=== PATIENT | male | born 1995 | race Hispanic/Latino ===

== ENCOUNTER 2018-06-21 14:27 | Inpatient (IN) | payer OTHER ==
[~2018-06-21] VITALS: Ht 182.9 cm; Wt 126.2 kg
[2018-06-21] MEDS ORDERED: SODIUM CHLORIDE 0.9% 1000ML 1,000 ML IV STA (14:41)
[2018-06-21] MEDS ORDERED: MORPHINE SULFATE INJ 4 MG/ML INJ IV ONE (15:00)
[2018-06-21] MEDS ORDERED: ONDANSETRON HCL INJ 2 MG/ML VIAL IV ONE (15:00)
[2018-06-21 15:03] LABS: BASOPHILS % 0.2 % (0.0-1.0); EOSINOPHILS # (AUTO) 0.1 (0.0-0.4); EOSINOPHILS % 0.6 % (0.0-6.0); HEMATOCRIT 45.7 % (38.2-49.6); HEMOGLOBIN 15.3 g/dL (14.0-18.0); LYMPHOCYTES # (AUTO) 2.5 (1.0-3.2); LYMPHOCYTES % 19.5 % (18.0-39.1); MEAN CORPUSCULAR HEMOGLOBIN 28.7 pg (28-32); MEAN CORPUSCULAR HGB CONC 33.5 g/dL (31-35); MEAN CORPUSCULAR VOLUME 85.6 fL (81-99); NEUTROPHILS % 71.4 % (38.7-80.0); PLATELET COUNT 290 x10e3/uL (140-360); RED BLOOD COUNT 5.34 x10e6/uL (4.3-5.7); RED CELL DISTRIBUTION WIDTH 13.2 % (11.7-14.4)
[2018-06-21 15:15] LABS: ALANINE AMINOTRANSFERASE 56 IU/L (0-55); ALBUMIN 4.3 g/dL (3.5-5.0); ALBUMIN/GLOBULIN RATIO 1.2 (0.8-2.0); ALKALINE PHOSPHATASE 95 IU/L (40-150); ANION GAP 14.9 mmol/L (8-16); CARBON DIOXIDE 28 mmol/L (22-29); CHLORIDE 101 mmol/L (98-107); EST GLOMERULAR FILTRATION RATE > 60 ML/MIN (60-); GLUCOSE 103 mg/dL (74-118); POTASSIUM 3.9 mmol/L (3.5-5.1); SODIUM 140 mmol/L (136-145)
[2018-06-21 15:31] LABS: BUN/CREATININE RATIO 11 (6-25)
[2018-06-21 15:48] LABS: BLOOD UREA NITROGEN 10 mg/dL (7-26)
[2018-06-21 16:13] LABS: BILIRUBIN,URINE NEGATIVE (NEGATIVE); CLARITY,URINE CLEAR (CLEAR); COLOR,URINE YELLOW (YELLOW); KETONES,URINE NEGATIVE (NEGATIVE); LEUKOCYTE ESTERASE ,URINE NEGATIVE (NEGATIVE); NITRITE,URINE NEGATIVE (NEGATIVE); PROTEIN,URINE DIPSTICK NEGATIVE (NEGATIVE); URINE UROBILINOGEN 0.2 mg/dL (0.2 - 1)
--- NOTE | 2018-06-21 16:18 | Diagnostic Imaging Report ---
EXAM: CT Abdomen and Pelvis WITH contrast INDICATION: Right lower quadrant pain COMPARISON: None. TECHNIQUE: Abdomen and Pelvis was scanned utilizing a multidetector helical scanner after administration of IV contrast. Coronal and sagittal reformations were obtained. IV CONTRAST: 100 mL Isovue-370 COMPLICATIONS: None RADIATION DOSE: Total DLP:1078 mGy*cm Estimated effective dose: (DLP x 0.015 x size factor) mSv CTDIvol has been reviewed. It is below the limits set by the Radiation Protocol Committee (RPC). Appropriate CT dose reduction techniques were utilized. FINDINGS: Abdomen: Lung Bases: No acute findings. Solid Organs: Unremarkable. Upper GI Tract: No small bowel obstructive changes. Vascularity: Unremarkable. Lymph Nodes: None Other: None. Pelvis: Bladder: Unremarkable. Other: None. Colon: Appendix is dilated and inflamed with appendicolith present. No evidence of perforation or abscess. Bones: No acute changes. IMPRESSION: 1. Moderate appendicitis with no evidence of abscess/rupture. Signed by: Dr. Juan Rodriguez MD on 06/21/2018 4:15 PM
[2018-06-21 16:26] LABS: AMORPHOUS SEDIMENT,URINE MODERATE (FEW); BACTERIA,URINE FEW /HPF; EPITHELIAL CELLS,URINE RARE /LPF
[2018-06-21] MEDS ORDERED: MORPHINE SULFATE INJ 4 MG/ML INJ IV PRN ×2 (16:45→17:00)
[2018-06-21] MEDS ORDERED: MORPHINE SULFATE 2 MG/ML SYR IV PRN (17:00)
--- OUTSIDE RECORDS SUMMARY | 2018-06-21 17:03 | XMS REPORT ---
Author [facility] Address Unknown Phone Unavailable Care Team Providers Care Heel Emery Buffer Name Role Phone Damian FRANZ Unavailable Unavailable Problems This patient has no known problems. Allergies, Adverse Reactions, Alerts This patient has no known allergies or adverse reactions. Medications This patient has no known medications. Results Test Description Test Time Test Comments Text Results Atomic Results Result Comments CT ABDOMEN/PELVIS W 2018-06-21 16:13:00 [place] [address] Patient Name: JOJO MONGE MR #: [id number] : 1995 Age/Sex: 22/M Req #: [id number] Adm Physician: Ordered by: LILLIE GONZALEZ [employer] Report #: [id number] Location: ER Room/Bed: Procedure: [id number] CT/CT ABDOMEN/PELVIS W Exam Date: 06/21/18 Exam Time: 1530 REPORT STATUS: Signed EXAM: CT Abdomen and Pelvis WITH contrast INDIC ATION: Right lower quadrant pain COMPARISON: None. TECHNIQUE: Abdomen and Pelvis was scanned utilizing a multidetector helical scanner after administration of IV contrast. Coronal and sagittal reformations were obtained. IV CONTRAST: 100 mL Isovue-370 COMPLICATIONS: None RADIATION DOSE: Total DLP:1078 mGy*cm Estimated effective dose: (DLP x 0.015 x size factor) mSv CTDIvol has been reviewed. It is below the limits set by the Radiation Protocol Committee (RPC). Appropriate CT dose reduction techniques were utilized. FINDINGS: Abdomen: Lung Bases: No acute findings. Solid Organs: Unremarkable. Upper GI Tract: No small bowel obstructive changes. Vascularity: Unremarkable. Lymph Nodes: None Other: None. Pelvis: Bladder: Unremarkable. Other: None. Colon: Appendix is dilated and inflamed with appendicolith present. No evidence of perforation or abscess. Bones: No acute changes. IMPRESSION: 1. Moderate appendicitis with no evidence of abscess/rupture. Signed by: Dr. Juan Rodriguez MD on 06/21/2018 4:15 PM Dictated By: JUAN RODRIGUEZ MD 1619 Transcribed By: RAQUEL on 06/21/18 1618 COPY TO: LILLIE GONZALEZ NP
[2018-06-21] MEDS: PIPER-TAZ 3.375 GM 50 ML IV SCH ×2 (17:04→23:09)
[2018-06-21] MEDS: SODIUM CHLORIDE 0.9% 1000ML 1,000 ML IV SCH (17:05)
[2018-06-21] MEDS ORDERED: ROCURONIUM BROMIDE 10 MG/ML 5ML VIAL ONE (18:49)
[2018-06-21] MEDS ORDERED: GLYCOPYRROLATE INJ 1MG/ 5 ML SYR ONE (18:49)
[2018-06-21] MEDS ORDERED: NEOSTIGMINE 5 MG/5ML SYR ONE (18:49)
[2018-06-21] MEDS ORDERED: PROPOFOL IV EMULSION 10 MG/ML 20 ML VIAL ONE (18:49)
[2018-06-21] MEDS ORDERED: SUCCINYLCHOLINE 200 MG/10 ML SYR ONE (18:49)
[2018-06-21] MEDS ORDERED: SEVOFLURANE INHAL SOLN 250 ML PEN BTL ONE (18:49)
[2018-06-21] MEDS ORDERED: ONDANSETRON HCL INJ 2 MG/ML VIAL ONE (18:49)
[2018-06-21] MEDS ORDERED: DEXAMETHASONE SOD PHOS INJ 4 MG/ML VIAL ONE (18:49)
[2018-06-21] MEDS ORDERED: LIDOCAINE HCL 2% LOCAL INJ 5 ML SDV VIAL INJ ONE (18:49)
[2018-06-21] MEDS ORDERED: ACETAMINOPHEN 1000 MG/100 ML IV ONE (18:49)
[2018-06-21] MEDS: ONDANSETRON HCL INJ 2 MG/ML VIAL IV PRN ×2 (18:50→23:00)
[2018-06-21] MEDS ORDERED: HYDROMORPHONE 1MG/1ML INJ IV PRN (20:00)
[2018-06-21 21:15] VITALS: BP 147/87
[2018-06-21 21:34] VITALS: BP 147/87
[2018-06-21] MEDS ORDERED: IOPAMIDOL 370 MG/ML 200 ML INFUS..BTL INJ ONE (22:14)
[2018-06-21] MEDS ORDERED: SODIUM CHLORIDE 0.9% 50ML 50 ML ONE (22:14)
[2018-06-21] MEDS: HYDROMORPHONE 2MG/ML 2 MG/ML ML IV PRN (23:00)
[2018-06-22] VITALS (7 sets, daily range): BP systolic 121–182; BP diastolic 56–107
[2018-06-22] MEDS: SODIUM CHLORIDE 0.9% 1000ML 1,000 ML IV SCH ×3 (01:46→16:29)
[2018-06-22] MEDS: ONDANSETRON HCL INJ 2 MG/ML VIAL IV PRN ×4 (03:30→22:05)
[2018-06-22] MEDS: HYDROMORPHONE 2MG/ML 2 MG/ML ML IV PRN ×4 (03:30→22:05)
[2018-06-22] MEDS: PIPER-TAZ 3.375 GM 50 ML IV SCH ×4 (05:57→23:30)
[2018-06-22] MEDS ORDERED: BUPIVACAINE 0.25%/EPI 30ML SDV INJ ONE (07:45)
[2018-06-22] MEDS ORDERED: ACETAMINOPHEN 1000 MG/100 ML 100 ML IV ONE (09:17)
[2018-06-22] MEDS ORDERED: FENTANYL CITRATE/PF 100MCG/2 ML INJ ONE ×2 (12:14→16:05)
[2018-06-22] MEDS ORDERED: MIDAZOLAM HCL 2 MG/2 ML VIAL ONE (16:05)
[2018-06-22] MEDS: ACETAMINOPHEN 325 MG TAB PO PRN (20:00)
[2018-06-23] VITALS (8 sets, daily range): BP systolic 126–137; BP diastolic 69–90
[2018-06-23] MEDS: HYDROMORPHONE 2MG/ML 2 MG/ML ML IV PRN ×5 (03:21→22:37)
[2018-06-23] MEDS: ONDANSETRON HCL INJ 2 MG/ML VIAL IV PRN ×3 (03:21→19:27)
[2018-06-23] MEDS: SODIUM CHLORIDE 0.9% 1000ML 1,000 ML IV SCH ×3 (06:01→20:20)
[2018-06-23] MEDS: PIPER-TAZ 3.375 GM 50 ML IV SCH ×3 (06:01→18:00)
[2018-06-23] MEDS: ACETAMINOPHEN 325 MG TAB PO PRN (20:39)
[2018-06-24] VITALS (8 sets, daily range): BP systolic 120–140; BP diastolic 65–89
[2018-06-24] MEDS: PIPER-TAZ 3.375 GM 50 ML IV SCH ×4 (00:17→18:35)
[2018-06-24] MEDS: SODIUM CHLORIDE 0.9% 1000ML 1,000 ML IV SCH ×3 (06:30→16:30)
[2018-06-24] MEDS: ONDANSETRON HCL INJ 2 MG/ML VIAL IV PRN (09:30)
[2018-06-24] MEDS: HYDROMORPHONE 2MG/ML 2 MG/ML ML IV PRN (09:30)
[2018-06-24] MEDS: ACETAMINOPHEN 325 MG TAB PO PRN (11:40)
[2018-06-24] MEDS: DIPHENOXYLATE/ATROPINE TAB PO PRN ×2 (11:40→18:35)
[2018-06-24] MEDS ORDERED: HYDROCODONE/APAP 7.5MG-325MG 1 EA TAB PO PRN ×2 (17:00)
[2018-06-25] VITALS: BP 129/59
[2018-06-25] MEDS: PIPER-TAZ 3.375 GM 50 ML IV SCH ×4 (00:25→17:54)
[2018-06-25] MEDS: SODIUM CHLORIDE 0.9% 1000ML 1,000 ML IV SCH ×3 (00:52→18:23)
[2018-06-25 04:00] VITALS: BP 127/58
[2018-06-25] MEDS: DIPHENOXYLATE/ATROPINE TAB PO PRN ×2 (06:02→16:35)
[2018-06-25 08:00] VITALS: BP 149/75
[2018-06-25 12:00] VITALS: BP 129/67
[2018-06-25 16:00] VITALS: BP 138/65
[2018-06-25] MEDS: ONDANSETRON HCL INJ 2 MG/ML VIAL IV PRN (18:45)
[2018-06-25 20:00] VITALS: BP 142/74
[2018-06-26] VITALS: BP 123/72
[2018-06-26] MEDS: PIPER-TAZ 3.375 GM 50 ML IV SCH ×2 (00:35→06:00)
[2018-06-26 02:45] VITALS: BP 123/72
[2018-06-26 04:00] VITALS: BP 142/89
[2018-06-26 06:13] LABS: BASOPHILS % 0.2 % (0.0-1.0); EOSINOPHILS # (AUTO) 0.2 (0.0-0.4); EOSINOPHILS % 2.1 % (0.0-6.0); HEMATOCRIT 35.2 % (38.2-49.6); LYMPHOCYTES # (AUTO) 1.6 (1.0-3.2); LYMPHOCYTES % 19.4 % (18.0-39.1); MEAN CORPUSCULAR HEMOGLOBIN 28.9 pg (28-32); MEAN CORPUSCULAR HGB CONC 33.8 g/dL (31-35); MEAN CORPUSCULAR VOLUME 85.4 fL (81-99); MONOCYTES # (AUTO) 0.7 (0.2-0.8); MONOCYTES % 8.6 % (4.4-11.3); NEUTROPHILS # (AUTO) 5.6 (2.1-6.9); NEUTROPHILS % 69.5 % (38.7-80.0); PLATELET COUNT 295 x10e3/uL (140-360); RED BLOOD COUNT 4.12 x10e6/uL (4.3-5.7); RED CELL DISTRIBUTION WIDTH 13.2 % (11.7-14.4)
[2018-06-26 06:37] LABS: ALANINE AMINOTRANSFERASE 39 IU/L (0-55); ALBUMIN 2.9 g/dL (3.5-5.0); ALBUMIN/GLOBULIN RATIO 0.9 (0.8-2.0); ALKALINE PHOSPHATASE 99 IU/L (40-150); ANION GAP 11.5 mmol/L (8-16); BLOOD UREA NITROGEN 7 mg/dL (7-26); BUN/CREATININE RATIO 9 (6-25); CALCIUM 9.2 mg/dL (8.4-10.2); CARBON DIOXIDE 27 mmol/L (22-29); CHLORIDE 104 mmol/L (98-107); CREATININE, SERUM 0.77 mg/dL (0.72-1.25); EST GLOMERULAR FILTRATION RATE > 60 ML/MIN (60-); GLUCOSE 96 mg/dL (74-118); POTASSIUM 3.5 mmol/L (3.5-5.1); SODIUM 139 mmol/L (136-145)
[2018-06-26 06:53] LABS: HEMOGLOBIN 11.9 g/dL (14.0-18.0)
[2018-06-26 07:39] VITALS: BP 123/65
[2018-06-26 08:57] VITALS: BP 123/65
[2018-06-26 12:00] VITALS: BP 125/78
--- NOTE | 2018-08-15 18:41 | Discharge Summary ---
ADMITTING DIAGNOSIS: Acute appendicitis. DISCHARGE DIAGNOSIS: Acute perforated gangrenous appendicitis with intraabdominal abscess. OPERATION PERFORMED: Laparoscopic appendectomy and drainage of intraabdominal abscess. Complications none. HISTORY OF PRESENT ILLNESS: This 22-year-old male was admitted to the hospital with a several day history of abdominal pain that had become worse to the right lower quadrant and localized with guarding and rebound. CAT scan was consistent with a perforated appendicitis. Patient was taken to surgery on the day of admission where he underwent a laparoscopic appendectomy for perforated gangrenous appendicitis. Postoperatively the patient did well. He had fever for the first couple of days, but this quickly resolved. He was continued on IV antibiotics and he was then started on a clear liquid diet which was advanced all the way up to a regular diet, and finally on 06/26/2018 with the patient being afebrile, vital signs being stable, his wounds healing nicely, tolerating a regular diet well, he was discharged to go home to be followed at the office at a later date. HENRIK SAENZ MD Job#: [id number] [facility]
--- NOTE | 2018-08-15 18:48 | Operative Report ---
DATE OF PROCEDURE: June 21, 2018 PREOPERATIVE DIAGNOSIS: Acute appendicitis. POSTOPERATIVE DIAGNOSIS: Acute gangrenous perforated appendicitis with abscess. OPERATION PERFORMED: Laparoscopic appendectomy and drainage of abscess and peritoneal lavage. ANESTHESIA: General. COMPLICATIONS: None. ESTIMATED BLOOD LOSS: Minimal. DESCRIPTION OF PROCEDURE: With the patient lying in bed in the supine position under good general endotracheal anesthesia, the abdomen was prepped with Betadine solution and draped in the usual manner. A Veress needle was introduced into the umbilicus. A pneumoperitoneum was established without any difficulty. A 12-mm trocar was placed into the umbilicus and a 10 mm video laparoscope was placed into the intra-abdominal cavity. Under direct vision, two more 5 mm trocars were placed in the lower abdomen. Video laparoscopy at this point revealed an inflammatory mass in the right lower quadrant which upon an abscess was identified secondary to perforated gangrenous appendix. All of the purulent material was aspirated. The appendix was then mobilized off of the lateral gutter and swung medially. The base of the appendix was then slowly and carefully from the base of the cecum and the base of the cecum was then divided with Endo LEAH stapling device, and of the mesentery appendix was then divided with an application of the Endo LEAH vascular stapler. The appendix was placed in a pouch and removed through the umbilical port. Video laparoscopy was then again carried out. The whole area was then thoroughly irrigated. Perfect hemostasis was ascertained. The abdomen was copiously irrigated and all the necrotic material and fibrinopurulent material from the abdominal cavity was aspirated and removed. After this was done, a drain was left in the right lower quadrant and the pelvis and brought out through separate stab wound incision and the abdomen was then evacuated from all the pneumoperitoneum and all the trocars were removed under direct vision. The midline fascia at the umbilicus was then closed with a [id number] of 0 Vicryl. All layers were infiltrated on the way out with solution 1/4 percent Marcaine. Subcutaneous tissue was approximated with 3-0 Vicryl and the skin was closed with subcuticular 5-0 Vicryl. Benzoin, Steri-Strips and Band-Aids were applied. The sponge, lap and needle count was correct. The patient tolerated the procedure well and returned to the recovery room in stable condition. Job#: [id number] [facility]
== END 2018-06-26 11:49 | disposition home or self-care (01) | DRG 340 ==
LOC: ER 14:27 → INTOOBSV 17:00 → OBSVTOIN 17:00 → ERHOLD 17:00 → MED/SURG2 21:18
PROVIDERS: ADMIT Surgery; ATTEND Surgery
PROC: 0DTJ4ZZ Resection of Appendix, Percutaneous Endoscopic Approach (ICD-10-PCS; principal; 2018-06-22 09:00)
DX: K35.33 Acute appendicitis with perforation, localized peritonitis, and gangrene, with abscess (principal)
CPT/HCPCS: 36415; 74177; 80053; 81001; 85025; 88304; 96361; 99284; C1766; J1100; J2001; J2250; J2270; J2405; J2543; J7030; Q9967